=== PATIENT | male | born 1965 | race Caucasian/White ===

== ENCOUNTER 2017-09-14 08:54 | Emergency (ER) | payer OTHER ==
[2017-09-14] MEDS ORDERED: ASPIRIN 81 MG CHEWABLE TABLET ONE (09:17)
[2017-09-14] MEDS ORDERED: FAMOTIDINE 20 MG/2 ML VIAL IV ONE (09:17)
[2017-09-14 09:35] LABS: Absolute Lymphocytes (CBC) 2.8 K/uL (0.7-4.9); Absolute Monocytes 0.5 K/uL (0.1-1.3); Absolute Neutrophil 4.1 K/uL (1.8-8.0); Basophils % 0.4 % (0-1.3); Eosinophils % 5.8 % (0-4.4); Hematocrit 43.6 % (39.6-49.0); Lymphocytes % 35.9 % (15.3-44.8); MCH 31.9 pg (27.0-35.0); MCV 93.2 fL (80-100); MPV 10.5 fL (7.6-11.3); Monocytes % 6.5 % (3.3-12.3); RBC Red Blood Cell Count 4.68 M/uL (4.33-5.43)
[2017-09-14 09:40] LABS: Protime INR 0.91
--- NOTE | 2017-09-14 10:29 | RAD REPORT ---
EXAM DESCRIPTION: Felipa Single View09/14/2017 10:01 am CLINICAL HISTORY: Chest pain COMPARISON: 2014 FINDINGS: The lungs appear clear of acute infiltrate. The left lung base is not entirely included o n the film and is not evaluated. The heart is normal size IMPRESSION: No acute abnormalities displayed
[2017-09-14 11:09] LABS: RPR Titer ND
[2017-09-14 11:31] LABS: Potassium 4.4 mEq/L (3.6-5.0)
[2017-09-14 11:37] LABS: Albumin 4.5 g/dL (3.2-5.5); Bilirubin Direct 0.1 mg/dL (0-0.2); Bilirubin Total 0.6 mg/dL (0.3-1.2); CKMB Creatine Kinase MB 0.7 ng/ml (0.3-4.0); Magnesium 1.8 mg/dL (1.8-2.5); Protein, Total 7.8 g/dL (6.0-8.3)
[2017-09-14 11:38] LABS: Uric Acid 7.1 mg/dL (4.8-8.7)
--- NOTE | 2017-09-14 11:45 | RAD REPORT ---
EXAM DESCRIPTION: US - Abdomen Exam Limited - 09/14/2017 11:33 am CLINICAL HISTORY: Abdominal pain. COMPARISON: None. FINDINGS: The gallbladder demonstrates no gallstones. No pericholecystic fluid or gallbladder wall t hickening. The common bile duct is normal measuring 1-2 mm. The liver demonstrates no findings of intrahepatic biliary dilatation. IMPRESSION: Unremarkable examination.
[2017-09-14 12:30] LABS: Thyroid Stimulating Hormone 1.74 uIU/mL (0.34-5.60)
--- NOTE | 2017-09-14 12:32 | TREADMILL ---
70% H.R.: 118 85% H.R.: 143 90% H.R.: 151 100% H.R.: 168 DX: CHEST PAIN Date of Study: 09/14/17 Ht: Wt: lb oz Consulting Physician: TYSHAWN MEDICATIONS: HISTORY: 51 YEAR OLD MALE WITH CHEST PAIN. MYOCARDIAL INFARCTION WAS RULED OUT. PHYSICIAL EXAMINATION: RESTING B.P.: 144/95 RESTING H.R.: 56 RESTING EKG: NORMAL. PROTOCOL: DORON ROUTINE EXERCISE TIME: 10:15 MAXIMUM HEART RATE: 162 % OF PREDICTED B.P. AT PEAK STRESS: 148/90 137/83 H.R. AT 1 MINUTE POST EXERCISE: 127 IMPRESSION: ROUTINE TREADMILL PERFORMED. COMPLAINTS OF SLIGHT TWINGE CHEST PAIN, BUT DIFFERENT THAN EARLIER. SHORTNESS OF BREATH DURING WALKING. NO SUPRA VENTRICULAR TACHYCARDA OR VENTRICULAR TACHYCARDIA NOTED. NO ST DEPRESSION WITH STRESS. NORMAL STRESS TEST.
--- NOTE | 2017-09-14 12:35 | ECHO ---
HEIGHT: 5 ft 11 in WEIGHT: 160 lb oz DATE OF STUDY: 09/14/[address]: Tyrell Ashley MD 2-DIMENSIONAL: YES M.MODE: YES DOPPLER: YES COLOR FLOW: YES TDS: NO PORTABLE: NO DEFINITY: NO BUBBLE STUDY: NO DIAGNOSIS: CHEST PAIN CARDIAC HISTORY: CATHERIZATION: NO SURGERY: NO PROSTHETIC VALVE: NO PACEMAKER: NO MEASUREMENTS (cm) DIASTOLIC (NORMALS) SYSTOLIC (NORMALS) IVSd 1.0 (0.6-1.2) LA Diam 3.2 (1.9-4.0) LVEF 56% LVIDd 4.3 (3.5-5.7) LVIDs 3.0 (2.0-3.5) %FS 29% LVPWd 1.0 (0.6-1.2) Ao Diam 3.0 (2.0-3.7) 2 DIMENSIONAL ASSESSMENT: RIGHT ATRIUM: NORMAL LEFT ATRIUM: NORMAL RIGHT VENTRICLE: NORMAL LEFT VENTRICLE: NORMAL TRICUSPID VALVE: NORMAL MITRAL VALVE: NORMAL PULMONIC VALVE: NORMAL AORTIC VALVE: NORMAL PERICARDIAL EFFUSION: NONE AORTIC ROOT: NORMAL LEFT VENTRICULAR WALL MOTION: NORMAL. DOPPLER/COLOR FLOW: NORMAL. COMMENTS: NORMAL 2D ECHO. TECHNOLOGIST: MARIA ALEJANDRA ALLEN
--- NOTE | 2017-09-14 12:58 | ER ---
Nurse's Notes [facility] Name: Rk Cole Age: 51 yrs Sex: Male : 1965 Arrival Date: 09/14/2017 Time: 08:55 Bed 7 Private MD: Diagnosis: Chest pain, unspecified;Functional dyspepsia;Essential (primary) hypertension;Coarctation of aorta;Umbilical hernia Presentation: 09/14 08:55 Presenting complaint: Patient states: Chest pain that began Thursday. aa5 08:55 Transition of care: patient was not received from another setting of care. Onset of aa5 symptoms was September 2017. Care prior to arrival: None. 08:55 Method Of Arrival: Ambulatory aa5 08:55 Acuity: DAVION 3 aa5 09:02 Initial Sepsis Screen: Does the patient meet any 2 criteria? No. Patient's initial sv sepsis screen is negative. Does the patient have a suspected source of infection? No. Patient's initial sepsis screen is negative. Historical: - Allergies: 09:00 No Known Allergies; aa5 - Home Meds: 09:00 None [Active]; aa5 - PMHx: 09:00 None; aa5 - PSHx: 09:00 L hand; aa5 - Immunization history:: Adult Immunizations up to date. - Family history:: not pertinent. - Social history:: Smoking status: Patient/guardian denies using tobacco. Screenin:01 Abuse screen: Denies threats or abuse. Denies injuries from another. Nutritional sv screening: No deficits noted. Tuberculosis screening: No symptoms or risk factors identified. Fall Risk None identified. Assessment: 09:00 General: Appears uncomfortable, slender, well developed, Behavior is cooperative, sv appropriate for age, anxious. Pain: Complains of pain in anterior aspect of left upper chest Pain does not radiate. Pain currently is 3 out of 10 on a pain scale. Quality of pain is described as "weird" Pain began Thursday Is intermittent. Neuro: Level of Consciousness is awake, alert, obeys commands, Oriented to person, place, time, situation, Moves all extremities. Full function Gait is steady, Speech is normal, Reports weakness while he was doing a procedure at his work. Cardiovascular: Patient's skin is warm and dry. Rhythm is sinus rhythm. Respiratory: Respiratory effort is even, unlabored, Respiratory pattern is regular, symmetrical. Derm: Skin is normal. 09:38 Reassessment: No changes from previously documented assessment. Patient and/or family sv updated on plan of care and expected duration. Pain level reassessed. Patient is alert, oriented x 3, equal unlabored respirations, skin warm/dry/pink. 10:30 Reassessment: No changes from previously documented assessment. Patient and/or family sv updated on plan of care and expected duration. Pain level reassessed. Patient is alert, oriented x 3, equal unlabored respirations, skin warm/dry/pink. 12:13 Reassessment: Pt back from stress test. sv 12:15 Reassessment: No changes from previously documented assessment. Patient and/or family sv updated on plan of care and expected duration. Pain level reassessed. Patient is alert, oriented x 3, equal unlabored respirations, skin warm/dry/pink. 14:00 Reassessment: No changes from previously documented assessment. Patient and/or family sv updated on plan of care and expected duration. Pain level reassessed. Patient is alert, oriented x 3, equal unlabored respirations, skin warm/dry/pink. Vital Signs: 09:00 BP 157 / 95; Pulse 48; Resp 18 S; Temp 98.0(TE); Pulse Ox 100% on R/A; Weight 68.04 kg aa5 (R); Height 5 ft. 11 in. (180.34 cm) (R); Pain 0/10; 09:01 BP 157 / 95; Pulse 55; Resp 13; Pulse Ox 98% on R/A; sv 09:30 BP 153 / 88; Pulse 60; Resp 12; Pulse Ox 100% ; sv 10:16 BP 136 / 93; Pulse 56 MON; Resp 15; Pulse Ox 97% on R/A; sv 11:10 BP 156 / 82; Pulse 59; Resp 15; Pulse Ox 99% ; sv 12:15 BP 125 / 86; Pulse 82; Resp 18; Pulse Ox 99% on R/A; sv 13:30 BP 124 / 84; Pulse 69; Resp 17; Pulse Ox 99% ; sv 13:45 BP 124 / 92; Pulse 67; Resp 14; Pulse Ox 99% ; sv 09:00 Body Mass Index 20.92 (68.04 kg, 180.34 cm) aa5 10:16 Sinus bradycardia sv ED Course: 08:55 Patient arrived in ED. sg 08:55 Arm band placed on Patient placed in an exam room, on a stretcher. aa5 09:00 Isabela Benitez RN is Primary Nurse. sv 09:00 Initial lab(s) drawn, by me, sent to lab. Inserted saline lock: 20 gauge in right sv antecubital area, using aseptic technique. Blood collected. Flushed right antecubital with 5 ml normal saline. 09:01 Patient has correct armband on for positive identification. Placed in gown. Bed in low sv position. Call light in reach. Side rails up X 1. Adult w/ patient. hospital monitor on. Pulse ox on. NIBP on. Door closed. Warm blanket given. Head of bed elevated. 09:02 Patient maintains SpO2 saturation greater than 95% on room air. sv 09:04 Tyrell Ashley MD is Attending Physician. mckinley 09:04 Triage completed. aa5 09:56 X-ray completed. Portable x-ray completed in exam room. Patient tolerated procedure jb2 well. 09:57 XRAY Chest (1 view) In Process Unspecified. EDMS 11:10 Radiology exam delayed due to lab results not completed at this time. (BUN/Creatinine). kw1 11:33 US Abdomen Limited In Process Unspecified. EDMS 12:06 Radiology exam delayed due to Patient not in room at this time. nj 12:07 Ultrasound completed. Patient tolerated well. Note: . aa4 12:[address] via wheelchair. kw1 12:32 CT completed. Patient tolerated procedure well. Patient moved back from CT. kw1 12:33 CT Aorta for Dissection In Process Unspecified. EDMS 12:59 Pratik Fine MD is Referral Physician. mckinley 14:14 No provider procedures requiring assistance completed. intact, bleeding controlled, No pt redness/swelling at site. Administered Medications: 09:38 Drug: Aspirin 162 mg Route: PO; sv 09:38 Drug: Pepcid 20 mg Route: IVP; Site: right antecubital; sv 12:43 Not Given (Duplicate Order): Norvasc 10 mg PO once mckinley 13:21 Drug: NS 0.9% 500 ml Route: IV; Rate: bolus; Site: right antecubital; sg 14:00 Follow up: Response: No adverse reaction; IV Status: Completed infusion; IV Intake: sv 500ml Intake: 14:00 IV: 500ml; Total: 500ml. sv Outcome: 12:57 Discharge ordered by . mckinley 14:15 Discharged to home ambulatory. pt 14:15 Condition: good 14:15 Discharge instructions given to patient, Instructed on discharge instructions, Demonstrated understanding of instructions, follow-up care, medications, Prescriptions given X 2. 14:23 Patient left the ED. sv Signatures: Dispatcher [employer] Isabela Richardson RN Leonid Davis RN Tyrell Suazo MD MD cha Townsend, Paige, RN RN pt Jayce Lee2 Mari Almaraz4 Antonina Krause RN RN aa5 Alton Jimenez Kimberly kw1
--- NOTE | 2017-09-14 12:58 | EDPHYS ---
Physician Documentation [facility] Name: Rk Cole Age: 51 yrs Sex: Male : 1965 Arrival Date: 09/14/2017 Time: 08:55 Bed 7 Private MD: ED Physician Tyrell Ashley HPI: 09/14 09:10 This 51 yrs old Male presents to ER via Ambulatory with complaints of Chest mckinley Pain > 30 y/o. 09:10 The patient or guardian reports chest pain that is located primarily in the anterior mckinley chest wall, left. Onset: 3 day(s) ago. The pain does not radiate. Associated signs and symptoms: Pertinent positives: dizziness. The chest pain is described as dull, causing indigestion, a pressure. Duration: The patient or guardian reports multiple episodes, with no pattern. Modifying factors: The symptoms are alleviated by nothing. the symptoms are aggravated by nothing. Severity of pain: At its worst the pain was mild moderate in the emergency department the pain has improved moderately. The patient has experienced similar episodes in the past, a few times. Historical: - Allergies: 09:00 No Known Allergies; aa5 - Home Meds: 09:00 None [Active]; aa5 - PMHx: 09:00 None; aa5 - PSHx: 09:00 L hand; aa5 - Immunization history:: Adult Immunizations up to date. - Family history:: not pertinent. - Social history:: Smoking status: Patient/guardian denies using tobacco. ROS: 09:10 Constitutional: Negative for fever, chills, and weight loss, Eyes: Negative for injury, mckinley pain, redness, and discharge, ENT: Negative for injury, pain, and discharge, Neck: Negative for injury, pain, and swelling, Respiratory: Negative for shortness of breath, cough, wheezing, and pleuritic chest pain, Abdomen/GI: Negative for abdominal pain, nausea, vomiting, diarrhea, and constipation, Back: Negative for injury and pain, : Negative for injury, bleeding, discharge, and swelling, MS/Extremity: Negative for injury and deformity, Skin: Negative for injury, rash, and discoloration, Neuro: Negative for headache, weakness, numbness, tingling, and seizure, Psych: Negative for depression, anxiety, suicide ideation, homicidal ideation, and hallucinations, Allergy/Immunology: Negative for hives, rash, and allergies, Endocrine: Negative for neck swelling, polydipsia, polyuria, polyphagia, and marked weight changes, Hematologic/Lymphatic: Negative for swollen nodes, abnormal bleeding, and unusual bruising. 09:10 Cardiovascular: Positive for chest pain, of the anterior aspect of left upper chest and left breast. Exam: 09:10 Constitutional: This is a well developed, well nourished patient who is awake, alert, mckinley and in no acute distress. Head/Face: Normocephalic, atraumatic. Eyes: Pupils equal round and reactive to light, extra-ocular motions intact. Lids and lashes normal. Conjunctiva and sclera are non-icteric and not injected. Cornea within normal limits. Periorbital areas with no swelling, redness, or edema. ENT: Nares patent. No nasal discharge, no septal abnormalities noted. Tympanic membranes are normal and external auditory canals are clear. Oropharynx with no redness, swelling, or masses, exudates, or evidence of obstruction, uvula midline. Mucous membranes moist. Neck: Trachea midline, no thyromegaly or masses palpated, and no cervical lymphadenopathy. Supple, full range of motion without nuchal rigidity, or vertebral point tenderness. No Meningismus. Chest/axilla: Normal chest wall appearance and motion. Nontender with no deformity. No lesions are appreciated. Cardiovascular: Regular rate and rhythm with a normal S1 and S2. No gallops, murmurs, or rubs. Normal PMI, no JVD. No pulse deficits. Respiratory: Lungs have equal breath sounds bilaterally, clear to auscultation and percussion. No rales, rhonchi or wheezes noted. No increased work of breathing, no retractions or nasal flaring. Abdomen/GI: Soft, non-tender, with normal bowel sounds. No distension or tympany. No guarding or rebound. No evidence of tenderness throughout. Back: No spinal tenderness. No costovertebral tenderness. Full range of motion. Male : Normal genitalia with no discharge or lesions. Skin: Warm, dry with normal turgor. Normal color with no rashes, no lesions, and no evidence of cellulitis. MS/ Extremity: Pulses equal, no cyanosis. Neurovascular intact. Full, normal range of motion. Neuro: Awake and alert, GCS 15, oriented to person, place, time, and situation. Cranial nerves II-XII grossly intact. Motor strength 5/5 in all extremities. Sensory grossly intact. Cerebellar exam normal. Normal gait. Psych: Awake, alert, with orientation to person, place and time. Behavior, mood, and affect are within normal limits. Vital Signs: 09:00 BP 157 / 95; Pulse 48; Resp 18 S; Temp 98.0(TE); Pulse Ox 100% on R/A; Weight 68.04 kg aa5 (R); Height 5 ft. 11 in. (180.34 cm) (R); Pain 0/10; 09:01 BP 157 / 95; Pulse 55; Resp 13; Pulse Ox 98% on R/A; sv 09:30 BP 153 / 88; Pulse 60; Resp 12; Pulse Ox 100% ; sv 10:16 BP 136 / 93; Pulse 56 MON; Resp 15; Pulse Ox 97% on R/A; sv 11:10 BP 156 / 82; Pulse 59; Resp 15; Pulse Ox 99% ; sv 12:15 BP 125 / 86; Pulse 82; Resp 18; Pulse Ox 99% on R/A; sv 13:30 BP 124 / 84; Pulse 69; Resp 17; Pulse Ox 99% ; sv 13:45 BP 124 / 92; Pulse 67; Resp 14; Pulse Ox 99% ; sv 09:00 Body Mass Index 20.92 (68.04 kg, 180.34 cm) aa5 10:16 Sinus bradycardia sv MDM: 09:04 Patient medically screened. [facility] 11:07 Data reviewed: vital signs, nurses notes, lab test result(s), EKG, radiologic studies, [facility] CT scan, plain films, ultrasound. 09/14 09:00 Order name: Basic Metabolic Panel; Complete Time: 11:47 sv 09/14 09:00 Order name: BNP; Complete Time: 10:54 sv 09/14 09:00 Order name: CBC with Diff; Complete Time: 10:54 sv 09/14 09:00 Order name: Ckmb; Complete Time: 11:47 sv 09/14 09:00 Order name: CPK; Complete Time: 11:47 sv 09/14 09:00 Order name: LFT's; Complete Time: 11:47 09/14 09:00 Order name: Magnesium; Complete Time: 11:47 09/14 09:00 Order name: PT-INR; Complete Time: 10:54 09/14 09:00 Order name: Ptt, Activated; Complete Time: 10:54 09/14 09:00 Order name: Troponin (emerg Dept Use Only); Complete Time: 10:54 sv 09/14 09:26 Order name: Lipase; Complete Time: 12:37 [facility] 09/14 09:26 Order name: TSH; Complete Time: 12:37 [facility] 09/14 09:26 Order name: D-Dimer; Complete Time: 11:47 [facility] 09/14 09:49 Order name: Lipid Profile; Complete Time: 12:14 09/14 09:49 Order name: Hepatitis Panel sv 09/14 09:49 Order name: Rpr 09/14 09:49 Order name: Sed Rate; Complete Time: 11:47 09/14 09:49 Order name: Amylase, Serum; Complete Time: 12:14 09/14 09:49 Order name: Uric Acid; Complete Time: 12:14 09/14 09:49 Order name: B12; Complete Time: 12:14 09/14 09:49 Order name: LAB Misc. Test 09/14 09:58 Order name: HIV AG/AB SCREEN EDGA 09/14 09:58 Order name: Homocysteine EDGA 09/14 11:22 Order name: Urine Dipstick--Ancillary (enter results); Complete Time: 13:34 bd 09/14 14:13 Order name: Fecal Leukocyte Stain 09/14 14:13 Order name: Stool Culture 09/14 14:13 Order name: Ova And Parasites 09/14 09:00 Order name: XRAY Chest (1 view); Complete Time: 10:54 09/14 09:00 Order name: EKG; Complete Time: 09:01 09/14 09:00 Order name: Cardiac monitoring; Complete Time: 09:12 09/14 09:00 Order name: EKG - Nurse/Tech; Complete Time: 09:12 sv 09/14 09:00 Order name: IV Saline Lock; Complete Time: 09:12 sv 09/14 09:00 Order name: Labs collected and sent; Complete Time: 09:12 sv 09/14 09:00 Order name: O2 Per Protocol; Complete Time: 09:12 sv 09/14 09:00 Order name: O2 Sat Monitoring; Complete Time: 09:12 09/14 09:26 Order name: Echo w/ Doppler [facility] 09/14 11:02 Order name: US Abdomen Limited; Complete Time: 11:47 [facility] 09/14 11:07 Order name: CT Aorta for Dissection; Complete Time: 13:04 [facility] 09/14 13:33 Order name: PO challenge; Complete Time: 19:40 [facility] 09/14 14:13 Order name: CDIFF 09/14 14:13 Order name: Fecal Leukocyte Stain EDMS 09/14 14:14 Order name: Stool Culture EDMS Administered Medications: 09:38 Drug: Aspirin 162 mg Route: PO; sv 09:38 Drug: Pepcid 20 mg Route: IVP; Site: right antecubital; sv 12:43 Not Given (Duplicate Order): Norvasc 10 mg PO once [facility] 13:21 Drug: NS 0.9% 500 ml Route: IV; Rate: bolus; Site: right antecubital; sg 14:00 Follow up: Response: No adverse reaction; IV Status: Completed infusion; IV Intake: sv 500ml Disposition: 09/14/17 12:57 Discharged to Home. Impression: Chest pain, unspecified, Functional dyspepsia, Essential (primary) hypertension, Coarctation of aorta, Umbilical hernia. - Condition is Stable. - Discharge Instructions: Nonspecific Chest Pain, Chest Wall Pain, Hypertension, Hypertension, [id number], Aspirin and Your Heart. - Prescriptions for Protonix 40 mg Oral Tablet - take 1 tablet by ORAL route once daily; 30 tablet. Norvasc 5 mg Oral Tablet - take 1 tablet by ORAL route once daily; 20 tablet. - Medication Reconciliation Form, Thank You Letter, Antibiotic Education, Prescription Opioid Use form. - Follow up: Private Physician; When: 2 - 3 days; Reason: Recheck today's complaints, Continuance of care, Re-evaluation by your physician. Follow up: Pratik Fine MD; When: 2 - 3 days; Reason: Recheck today's complaints, Re-evaluation by your physician. - Problem is new. - Symptoms have improved. Signatures: Dispatcher [employer] EDMS Isabela Benitez RN RN sv Gay, Steven, RN RN Tyrell Ashley MD MD cha Calderon, Audri RN RN aa5 Corrections: (The following items were deleted from the chart) 11:41 09:58 Celiac Disease Comp Panel ordered. [facility] 11:49 09:50 Miscellaneous Lab Test+R.LAB.BRZ ordered. [facility] 12:59 12:57 09/14/2017 12:57 Discharged to Home. Impression: Chest pain, unspecified; mckinley Functional dyspepsia; Essential (primary) hypertension; Coarctation of aorta. Condition is Stable. Discharge Instructions: Nonspecific Chest Pain, Chest Wall Pain, Aspirin and Your Heart, Hypertension, Hypertension, [id number]. Prescriptions for Protonix 40 mg Oral Tablet - take 1 tablet by ORAL route once daily; 30 tablet, Norvasc 5 mg Oral Tablet - take 1 tablet by ORAL route once daily; 20 tablet. and Forms are Medication Reconciliation Form, Thank You Letter, Antibiotic Education, Prescription Opioid Use. Follow up: Private Physician; When: 2 - 3 days; Reason: Recheck today's complaints, Continuance of care, Re-evaluation by your physician. Problem is new. Symptoms have improved. [facility] 13:00 12:59 09/14/2017 12:57 Discharged to Home. Impression: Chest pain, unspecified; mckinley Functional dyspepsia; Essential (primary) hypertension; Coarctation of aorta; Umbilical hernia. Condition is Stable. Discharge Instructions: Nonspecific Chest Pain, Chest Wall Pain, Aspirin and Your Heart, Hypertension, Hypertension, [id number]. Prescriptions for Protonix 40 mg Oral Tablet - take 1 tablet by ORAL route once daily; 30 tablet, Norvasc 5 mg Oral Tablet - take 1 tablet by ORAL route once daily; 20 tablet. and Forms are Medication Reconciliation Form, Thank You Letter, Antibiotic Education, Prescription Opioid Use. Follow up: Private Physician; When: 2 - 3 days; Reason: Recheck today's complaints, Continuance of care, Re-evaluation by your physician. Problem is new. Symptoms have improved. [facility] 14:14 14:14 Occult Blood+PA.LAB.BRZ ordered. [facility] 14:23 13:00 09/14/2017 12:57 Discharged to Home. Impression: Chest pain, unspecified; sv Functional dyspepsia; Essential (primary) hypertension; Coarctation of aorta; Umbilical hernia. Condition is Stable. Discharge Instructions: Nonspecific Chest Pain, Chest Wall Pain, Aspirin and Your Heart, Hypertension, Hypertension, [id number]. Prescriptions for Protonix 40 mg Oral Tablet - take 1 tablet by ORAL route once daily; 30 tablet, Norvasc 5 mg Oral Tablet - take 1 tablet by ORAL route once daily; 20 tablet. and Forms are Medication Reconciliation Form, Thank You Letter, Antibiotic Education, Prescription Opioid Use. Follow up: Private Physician; When: 2 - 3 days; Reason: Recheck today's complaints, Continuance of care, Re-evaluation by your physician. Follow up: Pratik Fine; When: 2 - 3 days; Reason: Recheck today's complaints, Re-evaluation by your physician. Problem is new. Symptoms have improved. mckinley
--- NOTE | 2017-09-14 12:58 | RAD REPORT ---
EXAM DESCRIPTION: CT - Angio Aorta For Dissection - 09/14/2017 12:33 pm CLINICAL HISTORY: . Chest and abdominal pain since Thursday COMPARISON: 2009 CT abdomen 1 TECHNIQUE: Computed tomography angiography of the chest, abdomen pelvis were obtained. 100 cc Isovue 370 was administered intravenously. Coronal and sagittal reconstruction were performed. All CT scans are performed using dose optimization technique as appropriate and may include automated exposure control or mA/KV adjustment according to patient size. FINDINGS: An aortic dissection is not seen. An aortic aneurysm is not displayed. A mild coarctation of the descending thoracic aorta is present to the takeoff of the left subclavian artery. The celiac, SMA and LEANDRO are patent . A lung consolidation is not present. A pericardial effusion is not seen. A pleural effusion is not n oted. The liver,spleen, pancreas adrenals kidneys demonstrate no significant abnormality. The appendix is normal. There no evidence diverticulitis. No ascites is noted. A small umbilical hernia contains a portion of nondilated bowel. IMPRESSION: Negative for an aortic dissection. Mild coarctation of the descending thoracic aorta Small umbilical hernia containing nondilated bowel
[2017-09-14] MEDS ORDERED: NA CHLORIDE 0.9% 500 ML ONE (13:17)
[2017-09-14 13:25] LABS: Urine Blood NEGATIVE (NEG); Urine Glucose NEGATIVE (NEG); Urine Protein NEGATIVE (NEG); Urine Specific Gravity <1.005 (1.005-1.030); Urine pH 5.5 (5.0-7.0)
--- NOTE | 2017-09-14 14:43 | EKG ---
Test Date: 2017-09-14 Test Time: 08:54:54 Sample Cutter: HOWIE MEASUREMENT RESULTS: Intervals: Rate: 60 DE: 190 QRSD: 80 QT: 408 QTc: 408 [place]: P: 66 DE: 190 QRS: -11 T: 65 INTERPRETIVE STATEMENTS: Normal sinus rhythm Normal ECG No previous ECG available for comparison Electronically Signed On 09-14-17 14:42:39 CDT by Pratik Fine
--- NOTE | 2017-09-14 15:06 | CON ---
Identification: A 51-year-old man. 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 History Of Present Illness: He has been having chest pain off and on for several days. He went to a emergency room in [place] about 3 days ago, was released when his EKGs and enzymes were normal. He was planning on doing a stress test, but went to work today and started feeling pain. The pain is ki nd of all over the chest. It is not pleuritic. It makes him feel lightheaded and giddy. He feels j ittery and nervous. No nausea or vomiting or sweating. After being here in the hospital for about a n hour, he feels better. He was given aspirin, no other medications. He has had an EKG that is norm al. Cardiac enzymes are normal. Echocardiogram that is normal. A sed rate is pending. B-natriuret ic peptide is normal. Chest x-ray is normal. 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 Does not have d iabetes, obesity hypertension, or dyslipidemia. Much of his blood work is still pending at this time . Impression: This is probably noncardiac. We will wait for other blood tests to come in. CAT scan o f the chest. If those look normal, we will do a stress test. He should probably look into whether h e has gallstone by doing an ultrasound of the abdomen, not sure it could be done now, but he has had little bit of something to eat today already. ANDREW/PACO Voice ID: [id number] Report ID: [id number]
[2017-09-15 22:02] LABS: RPR (Rapid Plasma Reagin) NON-REACT (NON-REACT)
[2017-09-16 10:44] LABS: HIV 1/2 Antibody Diff Not indicated.; HIV AG/AB 4TH GEN Non-reactive (Non-reactive)
[2017-09-17 21:07] LABS: HBsAG Nonreactive (Nonreactive); Hepatitis A IgM Antibody Nonreactive
[2017-09-17 22:55] LABS: Lactoferrin, Stool <30.0 mcg/mL (<30.0)
== END 2017-09-14 14:23 | disposition home or self-care (01) ==
LOC: ER 08:54
DX: K30 Functional dyspepsia (principal); I10 Essential (primary) hypertension; Q25.1 Coarctation of aorta; K42.9 Umbilical hernia without obstruction or gangrene
CPT/HCPCS: 36415; 71045; 71275; 74175; 76705; 80048; 80061; 80074; 80076; 81003; 82150; 82550; 82553; 82607; 82705; 83090; 83631; 83690; 83735; 83880; 84443; 84484; 84550; 85025; 85379; 85610; 85652; 85730; 86592; 87045; 87046; 87177; 87209; 87389; 87493; 89055; 93005; 93017; 93306; 96361; 96374; 99285; Q9967